=== PATIENT | male | born 1985 | race Caucasian/White ===

== ENCOUNTER 2016-10-13 00:35 | Emergency (ER) | payer BC ==
--- NOTE | ~2016-10-13 | EKG ---
PATIENT: MODESTO CELIS UNIT #: [id number] Ventricular Rate: 80 BPM Atrial Rate: 80 BPM P-R Interval: 162 ms QRS Duration: 106 ms Q-T Interval: 360 ms QTC Calculation(Bezet): 415 ms P [place]: 43 degrees Calculated R [place]: 2 degrees Calculated T [place]: 30 degrees Diagnosis Line: Normal sinus rhythm Diagnosis Line: Normal ECG Diagnosis Line: No previous ECGs available Diagnosis Line: Confirmed by SHAYLEE BARNETT MD ([id number]) on 10/15/2016 Diagnosis Line: 9:38:49 AM Diagnosis Line: Also confirmed by SHAYLEE BARNETT MD ([id number]), state editor Diagnosis Line: DARVIN FRAIRE ([id number]) on 10/15/2016 10:48:22 AM INTERPRETING MD: ERICKA MCGINNIS
--- NOTE | ~2016-10-13 | EKG ---
PATIENT: MODESTO CELIS UNIT #: [id number] Ventricular Rate: 80 BPM Atrial Rate: 80 BPM P-R Interval: 162 ms QRS Duration: 106 ms Q-T Interval: 360 ms QTC Calculation(Bezet): 415 ms P [place]: 43 degrees Calculated R [place]: 2 degrees Calculated T [place]: 30 degrees Diagnosis Line: Normal sinus rhythm Diagnosis Line: Normal ECG Diagnosis Line: No previous ECGs available Diagnosis Line: Confirmed by SHAYLEE BARNETT MD ([id number]) on 10/15/2016 Diagnosis Line: 9:38:49 AM INTERPRETING MD: ERICKA MCGINNIS
--- NOTE | ~2016-10-13 | CR72 ---
[facility]. [facility] A Service of [facility] RADIOLOGY TEXT RESULTS PATIENT: MODESTO CELIS LOCATION: SED : 89 UNIT #: [id number] AGE: [address]: Christiano Loya MD SEX: M ORDER DR: [id number] [address] [address] [id number] E MR#: [id number] Acc #: [id number] NAME: MODESTO CELIS : 1985 SEX: M STUDY DATE/TIME: 10/13/2016 0:46 UNIT: SED ROOM: STUDY DESCRIPTION: CR Chest Single View Portable Attending Physician: Christiano Loya M.D. Ordering Physician: Christiano Loya M.D. Primary Care Physician: Aaron Romero M.D. MEDICAL IMAGING REPORT This report is preliminary unless electronic signature is present. EXAM Portable chest HISTORY Chronic chest pain, palpitations, onset 1 week ago. COMPARISON 04/26/2007 FINDINGS A single AP portable view of the chest shows both lungs to be clear. The heart is normal in size. The mediastinal contour is normal. No significant bone abnormalities are seen. IMPRESSION Normal portable chest. Dictated by... Stephania Bowman M.D. THIS IS AN ELECTRONICALLY VERIFIED REPORT Stephania Bowman M.D. at 10/13/2016 9:59 PM Al TD: 10/13/2016 09:30 JOB #: [id number] MEDICAL IMAGING REPORT Page 1 of 1
[2016-10-13 00:29] LABS: BASOPHIL# 0.1 X10e3 (0-0.3); BASOPHIL% 0.7 % (0-2.5); EOSINOPHIL# 0.2 X10e3 (0-0.7); HEMATOCRIT 44.1 % (38.0-50.0); LYMPHOCYTE# 2.6 X10e3 (1.0-3.5); LYMPHOCYTE% 35.1 % (17.0-45.0); MEAN CELL VOLUME 82.9 FL (83-96); MEAN CORPUSCULAR HEMOGLOBIN 28.2 PG (28-34); MEAN PLATELET VOLUME 9.6 FL (6.5-11.5); MONOCYTE# 0.6 X10e3 (0-1.0); MONOCYTE% 7.5 % (3.0-12.0); NEUTROPHIL% 53.7 % (40-75); PLATELET COUNT 198 X10e3 (140-420); RED BLOOD COUNT 5.32 X10e (3.90-5.60); RED CELL DISTRIBUTION WIDTH 14.6 % (11.0-15.5); WHITE BLOOD COUNT 7.5 X10e3 (4.0-10.5)
[2016-10-13 00:30] LABS: DIFF IND NO; INR 1.1; PROTHROMBIN TIME (PATIENT) 12.6 SECONDS (9.5-12.4)
[~2016-10-13 00:35] MED LIST: PERCOCET5/325 PO; ZYRTEC
[2016-10-13 00:37] LABS: PARTIAL THROMBOPLASTIN TIME 29.2 SECONDS (25.6-38.1)
[2016-10-13 00:37] LABS: POC - CKMB <1.0 ng/mL (0.0-7.9); POC - TROPONIN <0.05 ng/mL (<=0.05)
[2016-10-13 00:39] LABS: ALBUMIN SERUM 5.1 g/dL (3.5-5.0); BILIRUBIN, DIRECT 0.1 mg/dL (0.0-0.2); BILIRUBIN,INDIRECT 0.3 mg/dL (0.0-0.9); BILIRUBIN,TOTAL 0.4 mg/dL (0.2-2.0); CALCIUM SERUM 10.1 mg/dL (8.4-10.2); POTASSIUM 3.7 mmol/L (3.5-5.1); PROTEIN TOTAL SERUM 8.1 g/dL (6.0-8.3)
== END 2016-10-13 01:52 | disposition home or self-care (01) ==
LOC: SED 00:35
PROVIDERS: Emergency Medicine
DX: R07.89 Other chest pain (principal); Z90.89 Acquired absence of other organs
CPT/HCPCS: 36415; 71010; 80048; 80076; 82553; 84484; 85025; 85610; 85730; 93005; 96374; 99284